=== PATIENT | female | born 1990 | race Caucasian/White ===

== ENCOUNTER → 2016-06-12 | Outpatient (CLI) | payer OTHER ==
--- NOTE | 2016-06-12 16:19 | US ---
Thyroid Ultrasound Indication: Possible thyromegaly on clinical exam. Technique: Longitudinal and transverse ultrasound imaging of the thyroid gland. Comparison: None Findings: The thyroid parenchyma has normal homogeneous echogenicity and a normal smooth capsule. A tiny benign 2-mm colloid cyst resides in the lower right lobe. No solid nodule or suspicious calcifications. Right lobe measures: 4.7 cm in length x 1.6 x 1.2 cm. Left lobe measures: 5.1 cm in length x 1.1 x 1.0 cm Isthmus thickness: 0.2 cm. No enlarged lymph nodes. Impression: Normal size thyroid gland. No thyroid nodule or lymphadenopathy.
== END ==
LOC: BRMIMAGING 13:04
PROVIDERS: ATTEND Family Medicine
DX: Z03.89 Encounter for observation for other suspected diseases and conditions ruled out (principal)

== ENCOUNTER → 2017-07-20 | Outpatient (CLI) | payer MEDICAID | LOC: CIMAGING 11:42 | PROVIDERS: ATTEND Family Medicine | DX: M25.561 Pain in right knee (principal) | CPT/HCPCS: 73562-PO ==